=== PATIENT | female | born 1945 | race Caucasian/White ===

== ENCOUNTER 2022-01-03 09:15 | Emergency (ER) | payer MEDICARE, MEDICAID ==
[~2022-01-03] VITALS: Ht 162.6 cm; Wt 61.4 kg
[~2022-01-03 09:15] MED LIST: ASPI81TA30 PO; ENAL-76 PO; MULT-1141 PO; OMEG1CAP2; SYN0.088T PO
[2022-01-03 09:19] VITALS: BP 173/85
[2022-01-03] MEDS ORDERED: ondansetron 4mg/5ml UD cup PO ONE (10:15)
[2022-01-03] MEDS ORDERED: HYDROcodone/acetaminophen 5mg/325mg tablet PO ONE (10:15)
[2022-01-03] MEDS ORDERED: HYDR-3965 PO (11:48)
[2022-01-05] MEDS ORDERED: HYDR-3965 PO (10:20)
== END 2022-01-03 11:58 | disposition home or self-care (01) ==
LOC: ER 09:15
DX: M62.838 Other muscle spasm (principal); M79.652 Pain in left thigh; Z79.82 Long term (current) use of aspirin; Z79.899 Other long term (current) drug therapy
CPT/HCPCS: 73551; 99283